=== PATIENT | male | born 1975 | race Caucasian/White ===

== ENCOUNTER 2021-02-25 16:31 | Outpatient (CLI) | payer OTHER, SELFPAY ==
--- NOTE | ~2021-02-25 | US_ITS ---
EXAMINATION: US scrotum doppler EXAM DATE: 02/25/2021 17:01 INDICATION: Left testicular pain. TECHNIQUE: Multiple grayscale and Doppler images of the testicles and scrotum were obtained bilateral ly. There is no prior study for comparison. FINDINGS: Right testicle measures 3.4 x 1.8 x 3.4 cm and is morphologically normal. Low resistance Doppler bella w confirmed. The epididymis is unremarkable. Small right-sided varicocele. Left testicle measures 3.0 x 1.7 x 2.7 cm and is morphologically normal. Low resistance Doppler flow confirmed. There is no hydrocele or varicocele. There is a focal extratesticular scrotal hypoecho ic region without vascularity demonstrated measuring 7 x 5 x 8 mm, nonspecific. This is an incidental finding could be an epididymal body cyst, most likely not a clinically significant finding, but ther e are uncommon extratesticular tumors. IMPRESSION: 1. No acute testicle scrotal findings. 2. Nonspecific hypoechoic left peritesticular region, could be proteinaceous cyst but can't exclude solid mass. Recommend 3-six-month follow-up scrotal ultrasound. 3. Small right-sided varicocele. Reviewed, dictated and finalized at location A. IMPRESSION: 1. No acute testicle scrotal findings. 2. Nonspecific hypoechoic left peritesticular region, could be proteinaceous c yst but can't exclude solid mass. Recommend 3-six-month follow-up scrotal ultra sound. 3. Small right-sided varicocele.
== END 2021-02-25 16:32 | disposition home or self-care (01) ==
PROVIDERS: PCP Family Medicine; Visit Provider Physician Assistant
DX: N50.812 Left testicular pain (principal); I86.1 Scrotal varices
CPT/HCPCS: 76870; 93976

== ENCOUNTER 2021-08-23 07:38 | Outpatient (CLI) | payer OTHER, SELFPAY ==
--- NOTE | ~2021-08-23 | US_ITS ---
EXAMINATION: US scrotum doppler DATE: 08/23/2021 08:40 INDICATION: Left testicular pain TECHNIQUE: Testicular sonogram utilizing grayscale and Doppler COMPARISON: 02/25/2021 FINDINGS: The right testis measures 3.6 x 3.6 x 1.6 cm. The left testis measures 3.4 x 2.5 x 1.8 cm. Symmetric normal grayscale appearance to both testes. There is normal vascular flow to both testes. The right e pididymis is normal with normal vascular flow. No significant change in a 5 mm anechoic likely likely either left epididymal or tunica cyst along the superficial margin of the left testis. The left epid idymis is otherwise normal with normal vascular flow. No significant interval change in a 9 x 8 x 6 m m now more anechoic likely cystic lesion in the soft tissues posterior to the left testis with no def initive soft tissue or vascular component on color Doppler. There is no varicocele or hydrocele. IMPRESSION: 1. No acute intrascrotal abnormality. 2. No significant change in a 9 mm now more anechoic likely cystic lesion posterior to the left testi s which given the appearance and absence of interval change or solid or vascular component favors a b enign etiology. Reviewed, dictated and finalized at location A. IMPRESSION: 1. No acute intrascrotal abnormality. 2. No significant change in a 9 mm now more anechoic likely cystic lesion poste rior to the left testis which given the appearance and absence of interval weinstein ge or solid or vascular component favors a benign etiology.
== END 2021-08-23 07:39 | disposition home or self-care (01) ==
PROVIDERS: PCP Family Medicine; Visit Provider Physician Assistant
DX: N50.812 Left testicular pain (principal)
CPT/HCPCS: 76870; 93976

== ENCOUNTER 2024-03-17 01:15 | Day surgery (SDC) | payer OTHER, SELFPAY ==
[2024-03-08 12:55] VITALS: BMI 40.1
[2024-03-17 07:47] VITALS: BP 134/87; PULSE 100; RESP 18; TEMP 35.9; O2SAT 99; BMI 40.3
[2024-03-17] MEDS: LACTATED RINGERS 1,000 ML 150 ML IV CONT (07:54)
--- NOTE | 2024-03-17 08:39 | WPDANESEPPF ---
Anes - Initial Pre Proc Eval Procedure: Operation Date: 03/17/24 09:00 Proposed Procedures p Screening Colonoscopy - Saroj Garza MD Date/Time: 03/17/24 08:39 Surgeon: Saroj Garza MD Pre Op Diagnosis: neoplasm screening Patient Data Age: 48 Gender: M Height: 1.78 m Weight: 127.4 kg Last Vital Signs Temp 96.6 F L 03/17/24 07:47 Pulse 100 03/17/24 07:47 Resp 18 03/17/24 07:47 BP 134/87 03/17/24 07:47 Pulse Ox 99 03/17/24 07:47 O2 Del Method Room Air 03/17/24 07:47 Allergies Allergy/AdvReac Type Severity Reaction Status Date / Time No Known Allergies Allergy Verified 03/17/24 07:46 Home Medications Medication Instructions Recorded Confirmed Type lisinopril 10 mg tablet See Rx Instructions .Route 12/08/23 03/17/24 Rx .COMPLEX #90 tabs fluticasone propionate 50 See Rx Instructions .Route 03/11/24 03/17/24 Rx mcg/actuation nasal .COMPLEX PRN Nasal Congestion #16 spray,suspension grams Patient hx anesthesia problems: none Family hx anesthesia problems: none Results Review: All pre-operative results and documents have been reviewed as part of the pre-operative evaluation. PENDING SALE TO [facility] Past Medical History Medical History Hypertension Family History Family History Grandparent Family history of cardiovascular disease Acute myocardial infarction Father Hypertension Family history of elevated blood lipids Social History Social History (Updated 12/23/23 @ 13:07 by Luiza Lake CMA) Smoking status: Never smoker Alcohol intake: current Drinks per week: 5 Substance use: never Do You Feel Safe in your Home?: Yes Lack of Transportation: No Lack of Food: Never True Current Housing: I Have Housing Concerned About Future Housing: No Difficulty Paying Gas/Electric Bills: No Difficulty Paying for Meds: No Currently Unemployed: No Education: Master's Degree or Higher Living arrangements: with family Anes - Eval Final PreProcedure Day of Procedure 04/18/24 08:39 Patient weight: morbidly obese Heart: regular rate and rhythm Lungs: clear to auscultation Airway: Mallampati scale class II Neurological: alert and oriented Last oral intake: >/= 8 hours ASA classification: III Emergent: no Anesthetic plan: proceed Anesthesia type and monitoring: general GIVS and standard monitoring Results Review: All pre-operative results and documents have been reviewed as part of the pre-operative evaluation. Informed Consent: The patient's anesthetic plan and its attendant risks and benefits were discussed with the patient/family/POA. Questions were solicited and answers provided to the satisfaction of the patient/family/POA.
--- NOTE | 2024-03-17 08:43 | PM.HPGS ---
History of Present Illness History of Present Illness Consent: Risks, benefits, and alternatives have been discussed and questions answered. Patient agrees to proceed with procedure. Chief complaint: neoplasm screening Narrative: Jamari Thornton is a 48 year old male here for first screening colonoscopy Review of Systems Review of Systems: All systems reviewed & are unremarkable except as noted in HPI and below PMFSH Past Medical History Medical History Hypertension Family History Family History Grandparent Family history of cardiovascular disease Acute myocardial infarction Father Hypertension Family history of elevated blood lipids Social History Social History (Updated 12/23/23 @ 13:07 by Luiza Lake CMA) Smoking status: Never smoker Alcohol intake: current Drinks per week: 5 Substance use: never Do You Feel Safe in your Home?: Yes Lack of Transportation: No Lack of Food: Never True Current Housing: I Have Housing Concerned About Future Housing: No Difficulty Paying Gas/Electric Bills: No Difficulty Paying for Meds: No Currently Unemployed: No Education: Master's Degree or Higher Living arrangements: with family Meds Home Medications and Allergies Home Medications Medication Instructions Recorded Confirmed Type lisinopril 10 mg tablet See Rx Instructions .Route 12/08/23 03/17/24 Rx .COMPLEX #90 tabs fluticasone propionate 50 See Rx Instructions .Route 03/11/24 03/17/24 Rx mcg/actuation nasal .COMPLEX PRN Nasal Congestion #16 spray,suspension grams Allergies Allergy/AdvReac Type Severity Reaction Status Date / Time No Known Allergies Allergy Verified 03/17/24 07:46 Vital Signs Vital Signs - 24 hr 03/17/24 07:47 Temperature 96.6 F L Pulse Rate 100 Respiratory Rate 18 Blood Pressure 134/87 Pulse Oximetry 99 Oxygen Delivery Room Air Exam Const: General: comfortable and no acute distress HENMT: Face/Nose/Sinus: Normal nares present Eyes: General: appearance normal, both eyes and all related structures Neck: Neck: no JVD Resp: Auscultation: clear to auscultation bilaterally Cardio: Rate: regular rate Rhythm: regular rhythm GI: Inspection: non-distended GI Palp: Yes Soft to palpation Skin: General skin exam: normal color Neuro: General: gait normal Speech: normal speech Extrem: General: normal to inspection Psych: Mental Status: mental status grossly normal Assessment and Plan Assessment and plan (1) Screening for colon cancer: Code(s): Z12.11 - Encounter for screening for malignant neoplasm of colon Status: Acute Assessment and Plan: colonoscopy
[2024-03-17 08:57] VITALS: BP 103/58; PULSE 78; RESP 16; O2SAT 98
[2024-03-17 09:07] VITALS: BP 108/56; PULSE 68; RESP 18; O2SAT 99
[2024-03-17 09:17] VITALS: BP 112/60; PULSE 72; RESP 18; O2SAT 98
== END 2024-03-17 09:22 | disposition home or self-care (01) ==
PROVIDERS: PCP Clinical Nurse Specialist; Visit Provider Internal Medicine Gastroenterology
PROC: 0DJD8ZZ Inspection of Lower Intestinal Tract, Via Natural or Artificial Opening Endoscopic (ICD-10-PCS; CPT 45378; principal; 2024-03-17 09:00)
DX: Z12.11 Encounter for screening for malignant neoplasm of colon (principal); I10 Essential (primary) hypertension; E66.01 Morbid (severe) obesity due to excess calories; Z68.41 Body mass index [BMI] 40.0-44.9, adult; Z82.49 Family history of ischemic heart disease and other diseases of the circulatory system
CPT/HCPCS: 45378; J2704; J7120

== ENCOUNTER 2024-05-24 14:18 | Emergency (ER) | payer OTHER, SELFPAY ==
--- NOTE | ~2024-05-24 | CT_ITS ---
EXAMINATION: CT abdomen pelvis wo con DATE: 05/24/2024 15:30 INDICATION: Right flank pain TECHNIQUE: Computed tomography (CT) of the abdomen and pelvis was performed without intravenous contr ast. Automated exposure control and iterative reconstruction technique were employed. The dose-length product was 1064.40 mGy-cm. COMPARISON: 07/27/2017 FINDINGS: Mild discoid atelectasis at the lingula. Heart size is normal. No pericardial or pleural effusion. Di ffuse hepatic steatosis. Gallbladder, spleen, pancreas, bilateral adrenal glands and left kidney are normal. 1 cm cyst at the upper pole the right kidney. 3 mm nonobstructing stone at a lower pole calyx of the right kidney. There is mild right hydroureteronephrosis extending to a 1 mm stone at the righ t ureterovesicular junction. No left-sided urolithiasis or hydronephrosis. The partially decompressed bladder is unremarkable. Bowels are normal with no evident wall thickening or obstruction. The appen jarvis is not visualized. No pericecal inflammatory change to suggest acute appendicitis. No free intra peritoneal gas or fluid. Small fat-containing umbilical hernia. No pathologically enlarged abdominal or pelvic lymphadenopathy. Mild lumbar and moderate lower thoracic spondylosis. IMPRESSION: 1. 1 mm obstructing stone at the right ureterovesicular junction with mild right hydronephrosis. Reviewed, dictated and finalized at location B. IMPRESSION: 1. 1 mm obstructing stone at the right ureterovesicular junction with mild righ t hydronephrosis.
[2024-05-24 14:24] VITALS: BP 141/116; PULSE 80; RESP 20; TEMP 36.8; O2SAT 98
[2024-05-24 14:45] LABS: Appearance Urine Clear (Clear); Bilirubin Urine Negative (Negative); Blood Urine Negative (Negative); Color Urine Yellow (Yellow); Glucose Urine UA Negative (Negative); Ketones Urine Negative (Negative); Leukocyte Esterase Ur Negative LEU/UL (Negative); Nitrate Urine Negative (Negative); Protein Urine Negative (Negative); Specific Grav Ur 1.019 (1.001-1.035); Urobilinogen Urine 0.2 mg/dL (<2.0)
[2024-05-24 14:46] LABS: Basophils Absolute Auto 0.1 K/mm3 (0.0-0.1); Basophils Percent Auto 0.8 % (0.2-1.2); Eosinophils Absolute Auto 0.1 K/mm3 (0-0.3); Eosinophils Percent Auto 1.1 % (0-4.4); Hematocrit 40.9 % (42.0-52.0); Immature Granulocyte Absolute 0.02 K/mm3 (0.00-0.031); Immature Granulocyte Percent A 0.2 % (0-0.5); Lymphocytes Absolute Auto 2.35 K/mm3 (0.9-3.2); Lymphocytes Percent Auto 27.8 % (18.3-44.2); Mean Corpuscular HGB Conc 34.2 g/dl (32-36); Mean Corpuscular Hemoglobin 27.8 pg (26-34); Mean Corpuscular Volume 81.2 fl (80-100); Mean Platelet Volume 9.6 fl (7.4-10.4); Monocytes Absolute Auto 0.8 K/mm3 (0.1-0.6); Monocytes Percent Auto 9.3 % (2.6-8.5); Neutrophils Absolute Auto 5.1 K/mm3 (1.3-6.7); Neutrophils Percent Auto 60.8 % (45.5-73.1); Platelet Count Result 279 k/mm3 (150-375); Red Blood Count 5.04 M/mm3 (4.6-6.20); Red Cell Distribution Width 13.4 % (11.5-14.5); White Blood Count 8.5 K/mm3 (4.5-10.0)
[2024-05-24 14:55] LABS: Alanine Aminotransferase 37 U/L (6-50); Albumin Level 4.9 g/dL (3.5-5.1); Alkaline Phosphatase 85 U/L (38-126); Anion Gap 13 mmol/L (4-12); Aspartate Amino Transferase 26 U/L (17-59); Bilirubin,Total 0.6 mg/dL (0.2-1.3); Blood Urea Nitrogen 17 mg/dL (9-20); Calcium 9.3 mg/dL (8.4-10.2); Carbon Dioxide 24 mmol/L (22-30); Chloride 103 mmol/L (98-107); Estimated CRCL calculation 119 ml/min; Estimated Glomerular Filt Rate > 60; Glucose 98 mg/dL (65-110); Sodium 140 mmol/L (137-145)
[2024-05-24 15:06] LABS: Add Urine Microscopic? NO
--- NOTE | 2024-05-24 15:17 | ED.BACK ---
HPI - Back Pain/Injury General Chief Complaint: Back Pain/Injury Stated Complaint: R flank pain Time Seen by Provider: 05/24/24 14:47 Source: patient Mode of arrival: ambulatory Limitations: no limitations History of Present Illness HPI Narrative: This is a 49 year old male that presents to the ER for right sided flank pain. Ongoing over the last couple of hours. Associated with nausea and vomiting. Reports history of kidney stones and his pain feels similar. Reports some dysuria. Denies fevers or hematuria. Related Data Allergies Allergy/AdvReac Type Severity Reaction Status Date / Time No Known Allergies Allergy Verified 05/24/24 14:29 Review of Systems Review of Systems: CONSTITUTIONAL: Denies fever GASTROINTESTINAL: Reports abdominal pain, nausea, vomiting GENITOURINARY: Reports dysuria. Denies hematuria. All systems reviewed & are unremarkable except as noted in HPI and below PMFSH Past Medical History Medical History Hypertension Family History Family History Grandparent Family history of cardiovascular disease Acute myocardial infarction Father Hypertension Family history of elevated blood lipids Social History Social History (Updated 12/23/23 @ 13:07 by Luiza Lake CMA) Smoking status: Never smoker Alcohol intake: current Drinks per week: 5 Substance use: never Do You Feel Safe in your Home?: Yes Lack of Transportation: No Lack of Food: Never True Current Housing: I Have Housing Concerned About Future Housing: No Difficulty Paying Gas/Electric Bills: No Difficulty Paying for Meds: No Currently Unemployed: No Education: Master's Degree or Higher Living arrangements: with family Exam Narrative: GENERAL: Well-appearing, well-nourished, and in no acute distress. HEAD: Normocephalic, atraumatic. EYES: EOMI. CHEST: Clear to auscultation. No respiratory distress. No wheezes rales or rhonchi HEART: Regular rate and rhythm. No murmur heard. Normal peripheral pulses. ABDOMEN: Soft, nontender, nondistended, normal active bowel sounds. No CVA tenderness EXTREMITIES: Normal range of motion. No edema. SKIN: Warm, dry, no rash. NEURO: No focal deficits. Alert and oriented x3. PSYCH: Normal mood and affect Course Course Emergency Course: patient updated on his workup and agrees with plan of care Vital Signs Vital signs: Vital Signs Temperature 98.3 F 05/24/24 14:24 Pulse Rate 80 05/24/24 14:24 Respiratory Rate 20 05/24/24 14:24 Blood Pressure 141/116 H 05/24/24 14:24 Pulse Oximetry 98 05/24/24 14:24 Oxygen Delivery Room Air 05/24/24 14:24 Temperature 98.3 F 05/24/24 14:24 Pulse Rate 80 05/24/24 14:24 Respiratory Rate 20 05/24/24 14:24 Blood Pressure 141/116 H 05/24/24 14:24 Pulse Oximetry 98 05/24/24 14:24 Oxygen Delivery Room Air 05/24/24 14:24 MDM - Back Pain/Injury MDM Narrative Medical decision making narrative: patient presents to the emergency department for right flank pain ongoing over the last several hours. He is afebrile and nontoxic appearing. His vitals are stable. Cbc without leukocytosis. Metabolic panel with normal kidney function. Urine without evidence of infection. CT abdomen and pelvis shows a 1 mm obstructing stone at the right UVJ. Patient updated on his workup and agrees with plan of care. Will be given follow-up with urology. He was given warnings to return to the ER Differential Diagnosis Differential diagnosis: Likely renal colic, pyelonephritis and other (UTI, kidney stone) Lab Data Attestation: I reviewed the patient's lab results. 05/24/24 14:38 05/24/24 14:38 Labs: Lab Results 05/24/24 Range/Units 14:38 WBC 8.5 (4.5-10.0) K/mm3 RBC 5.04 (4.6-6.20) M/mm3 Hgb 14.0 (14.0-18.0) g/dL Hct 40.9 L (42.0-52.0) %
[2024-05-24] MEDS: SODIUM CHLORIDE 0.9% IV 1,000 ML 999 ML IV CONT (15:20)
[2024-05-24] MEDS: MORPHINE SULFATE (*CRX) 4 MG/ML INJ IV PUSH (15:21)
[2024-05-24] MEDS: ONDANSETRON INJ 4 MG/2 ML VIAL IV PUSH (15:21)
[2024-05-24] MEDS: KETOROLAC 15 MG/ML VIAL (*BKC) IV PUSH (15:59)
[2024-05-24 18:00] VITALS: BP 135/87; PULSE 88; RESP 15; TEMP 36.6; O2SAT 99
== END 2024-05-24 18:04 | disposition home or self-care (01) ==
PROVIDERS: Emergency Medicine; Emergency Provider Physician Assistant; PCP Clinical Nurse Specialist
DX: N20.0 Calculus of kidney (principal); I10 Essential (primary) hypertension
CPT/HCPCS: 36415; 74176; 80053; 81003; 85025; 96361; 96374; 96375; 99284; J1885; J2270; J2405; J7030

== ENCOUNTER 2025-05-25 08:07 | Emergency (ER) | payer OTHER, SELFPAY ==
--- NOTE | ~2025-05-25 | CT_ITS ---
EXAMINATION: CT abdomen pelvis wo con DATE: 05/25/2025 08:48 INDICATION: Flank pain TECHNIQUE: Computed tomography (CT) of the abdomen and pelvis was performed without intravenous contr ast. Automated exposure control and iterative reconstruction technique were employed. The dose-length product was 872.71 mGy-cm. COMPARISON: 05/24/2024 FINDINGS: Calcified right lower lobe nodule consistent with old granulomatous disease. Heart size is normal. No pericardial or pleural effusion. Diffuse hepatic steatosis. Gallbladder, spleen, pancreas and bilate ral adrenal glands are normal. 405 mm stone at a lower pole calyx of the right kidney. 1 mm stone at the left ureterovesicular junction with mild left hydronephrosis. Bowels are unremarkable. Decompress ed bladder is normal. No free intraperitoneal gas or fluid. No pathologically enlarged abdominal or p elvic lymphadenopathy. Mild to moderate lumbar and lower thoracic spondylosis. IMPRESSION: 1. Bilateral nephrolithiasis with obstructing 1 mm stone at left ureterovesicular junction with mild left hydronephrosis. 2. Diffuse hepatic steatosis. Reviewed, dictated and finalized at location A. IMPRESSION: 1. Bilateral nephrolithiasis with obstructing 1 mm stone at left ureterovesicul ar junction with mild left hydronephrosis. 2. Diffuse hepatic steatosis.
[2025-05-25 08:14] VITALS: BP 140/99; PULSE 80; RESP 18; TEMP 37.2; O2SAT 99
--- NOTE | 2025-05-25 08:17 | ED_ITS ---
HPI - Male Genitourinary General Chief complaint: Urogenital-Male Stated complaint: I have kidney stones hx of kidney stones Time Seen by Provider: 05/25/25 08:16 Source: patient Mode of arrival: ambulatory Limitations: no limitations History of Present Illness HPI Narrative: 50 years old white male, left flank pain radiating to left testicle and left lower quadrant started 2 hours prior to arrival, history of kidney stone. Patient reports some nausea and vomiting once and diaphoresis. Last kidney stone was 1 year ago. He denies any fever or chills. Related Data Allergies Allergy/AdvReac Type Severity Reaction Status Date / Time No Known Allergies Allergy Verified 12/28/24 10:36 Review of Systems 2 Review of Systems: All systems reviewed & are unremarkable except as noted in HPI and below PMFSH Past Medical History Medical History Hypertension Family History Family History Grandparent Family history of cardiovascular disease Acute myocardial infarction Father Hypertension Family history of elevated blood lipids Social History Social History Smoking status: Never smoker Alcohol intake: current Drinks per week: 5 Substance use: never Do You Feel Safe in your Home?: Yes Lack of Transportation: No Lack of Food: Never True Current Housing: I Have Housing Concerned About Future Housing: No Difficulty Paying Gas/Electric Bills: No Difficulty Paying for Meds: No Currently Unemployed: No Education: Master's Degree or Higher Living arrangements: with family Exam 2 Narrative: General appearance: Well-developed, well-nourished Skin: Normal color Head: Normocephalic, nontraumatic Eyes: Clear conjunctiva ENT: Oropharynx normal, ears normal, nose normal Neck: Supple, nontender Chest and respiratory: Airway patent, no respiratory distress, no accessory muscle use Heart: Regular rate/rhythm Abdomen: Soft, left flank tenderness, left lower quadrant tenderness, no organomegaly, quiet bowel sounds Vascular: Normal peripheral pulses, normal capillary refill. Musculoskeletal: Normal range of motion, nontender back Neurologic: Alert and oriented ?3, [employer] INFORMATION DIRECT[employer] is normal as tested, no gross motor deficit Course Vital Signs Vital signs: Vital Signs Temperature 37.2 C 05/25/25 08:14 Pulse Rate 80 05/25/25 08:14 Respiratory Rate 18 05/25/25 08:14 Blood Pressure 140/99 H 05/25/25 08:14 Pulse Oximetry 99 05/25/25 08:14 Oxygen Delivery Room Air 05/25/25 08:14 Temperature 37.2 C 05/25/25 08:14 Pulse Rate 80 05/25/25 08:14 Respiratory Rate 18 05/25/25 08:14 Blood Pressure 140/99 H 05/25/25 08:14 Pulse Oximetry 99 05/25/25 08:14 Oxygen Delivery Room Air 05/25/25 08:14 MDM - Male Genitourinary MDM Narrative Medical decision making narrative: Patient presents with left flank pain, history of kidney stone Vital signs stable Physical examination left flank tenderness Differential diagnosis kidney stone, pyelonephritis, urinary tract infection Workup today include CBC, CMP, showed Urinalysis showed CT abdomen and pelvis without contrast showed Differential Diagnosis Differential diagnosis: Likely other (As above) Medical Records Attestation: I reviewed the patient's medical records. Lab Data Attestation: I reviewed the patient's lab results. 05/25/25 08:32 05/25/25 08:32 Labs: Lab Results 05/25/25 05/25/25 Range/Units 08:32 09:16 WBC 9.3 (4.5-10.0) K/mm3 RBC 5.04 (4.6-6.20) M/mm3 Hgb 13.6 L (14.0-18.0) g/dL Hct 41.5 L (42.0-52.0) % MCV 82.3 (80-100) fl MCH 27.0 (26-34) pg MCHC 32.8 (32-36) g/dl RDW 13.3 (11.5-14.5) % Plt Count 282 (150-375) k/mm3 MPV 9.4 (7.4-10.4) fl Immature Gran % (Auto) 0.4 (0-0.5) % Neut % (Auto) 58.4 (45.5-73.1) % Lymph % (Auto) 27.8 (18.3-44.2) % [place] % (Auto) 10.5 H (2.6-8.5) % Eos % (Auto) 2.1 (0-4.4) % Baso % (Auto) 0.8 (0.2-1.2) % Lymph # (Auto) 2.59 (0.9-3.2) K/mm3 [place] # (Auto) 1.0 H (0.1-0.6) K/mm3 Eos # (Auto) 0.2 (0-0.3) K/mm3 Baso # (Auto) 0.1 (0.0-0.1) K/mm3 Abs Immat Gran (auto) 0.04 H (0.00-0.031) K/mm3 Absolute Neuts (auto) 5.5 (1.3-6.7) K/mm3 Absolute Nucleated RBC 0.000 (0.0-0.012) K/mm3 Nucleated RBC % 0.0 (0.0-0.2) % Sodium 140 (137-145) mmol/L Potassium 4.2 (3.4-5.0) mmol/L Chloride 105 (98-107) mmol/L Carbon Dioxide 25 (22-30) mmol/L Anion Gap 10 (4-12) mmol/L BUN 19 (9-20) mg/dL Creatinine 1.01 (0.7-1.3) mg/dL Estim Creat Clear Calc 106 ml/min Estimated GFR > 60 (59 - ) Glucose 111 H (65-110) mg/dL Calcium 9.5 (8.4-10.2) mg/dL Total Bilirubin 0.4 (0.2-1.3) mg/dL AST 30 (17-59) U/L ALT 41 (6-50) U/L Alkaline Phosphatase 90 (38-126) U/L Total Protein 8.1 (6.3-8.2) g/dL Albumin 4.5 (3.5-5.1) g/dL Urine Color Yellow (Yellow) Urine Appearance Cloudy H (Clear) Urine pH 5.5 (5.0-9.0) Ur Specific [place] 1.031 (1.001-1.035) Urine Protein 1+ H (Negative) mg/dL Urine Glucose (UA) Negative (Negative) mg/dL Urine Ketones Trace H (Negative) mg/dL Ur Blood (Man) 3+ H (Negative) Urine Nitrate Negative (Negative) Urine Bilirubin Negative (Negative) Urine Urobilinogen 1.0 (<2.0) mg/dL Leukocyte Esterase Rfl Negative (Negative) WILLIAM/UL Urine RBC >100 H (0-2) /hpf Urine WBC 0-5 (0-3) /hpf Ur Squamous Epith Cells None seen (Few) /hpf Urine Bacteria None seen /hpf Urine Casts 0-2 Imaging Data Radiologist's impression: Impressions Abdomen/Pelvis CT 05/25/25 08:52 IMPRESSION: 1. Bilateral nephrolithiasis with obstructing 1 mm stone at left ureterovesicular junction with mild left hydronephrosis. 2. Diffuse hepatic steatosis. Discharge Plan Discharge Clinical Impression: Kidney stone on left side Clinical Impression: (Ruled Out): Screening for colon cancer Patient Disposition: Home Condition: Stable Instructions: Kidney Stones (ED), How to Strain Your Urine (ED) Additional Instructions: RETURN IF SYMPTOMS ARE WORSENING , CALL [facility] FOR APPOINTMENT, TAKE TYLENOL NEEDED FOR ACHES AND PAIN, CONTINUE HOME MEDICATIONS. Patient Language: Latvian Prescriptions: New ondansetron 4 mg tablet,disintegrating 4 mg PO Q4H 0 Days Qty: 10 0RF Rx Instructions: give 1st dose 30min before emetogenic chemo hydrocodone-acetaminophen 5-325 mg tablet 1 tablet PO Q4H Qty: 20 0RF tamsulosin [Flomax] 0.4 mg capsule 0.4 mg PO DAILY Qty: 10 0RF No Action lisinopril 10 mg tablet See Rx Instructions .ROUTE .COMPLEX Qty: 90 3RF Dose Instruction: Take 1 tablet by mouth once daily Rx Instructions: Take 1 tablet by mouth once daily fluticasone propionate 50 mcg/actuation spray,suspension See Rx Instructions .ROUTE .COMPLEX Qty: 16 0RF Dose Instruction: USE 1 TO 2 SPRAY(S) IN EACH NOSTRIL ONCE DAILY NEEDED FOR NASAL CONGESTION Rx Instructions: USE 1 TO 2 SPRAY(S) IN EACH NOSTRIL ONCE DAILY NEEDED FOR NASAL CONGESTION Follow-up/Referrals: Lan Felix MD [Physician] - 05/29/25 Shelby Rosas FNP-C [Primary Care Provider] -
[2025-05-25] MEDS: HYDROmorphone HCL INJ (*CRX) 2 MG/ML VIAL 0.5 MG IV PUSH ×2 (08:27→09:13)
[2025-05-25] MEDS: ONDANSETRON INJ 4 MG/2 ML VIAL IV PUSH ×2 (08:27→10:24)
[2025-05-25] MEDS: TAMSULOSIN HCL 0.4 MG CAPSULE PO (08:31)
[2025-05-25 08:40] LABS: Basophils Absolute Auto 0.1 K/mm3 (0.0-0.1); Basophils Percent Auto 0.8 % (0.2-1.2); Eosinophils Absolute Auto 0.2 K/mm3 (0-0.3); Eosinophils Percent Auto 2.1 % (0-4.4); Hematocrit 41.5 % (42.0-52.0); Hemoglobin 13.6 g/dL (14.0-18.0); Immature Granulocyte Absolute 0.04 K/mm3 (0.00-0.031); Immature Granulocyte Percent A 0.4 % (0-0.5); Lymphocytes Absolute Auto 2.59 K/mm3 (0.9-3.2); Lymphocytes Percent Auto 27.8 % (18.3-44.2); Mean Corpuscular HGB Conc 32.8 g/dl (32-36); Mean Corpuscular Volume 82.3 fl (80-100); Mean Platelet Volume 9.4 fl (7.4-10.4); Monocytes Percent Auto 10.5 % (2.6-8.5); Neutrophils Absolute Auto 5.5 K/mm3 (1.3-6.7); Neutrophils Percent Auto 58.4 % (45.5-73.1); Platelet Count Result 282 k/mm3 (150-375); Red Blood Count 5.04 M/mm3 (4.6-6.20); Red Cell Distribution Width 13.3 % (11.5-14.5); White Blood Count 9.3 K/mm3 (4.5-10.0)
[2025-05-25 08:54] LABS: Alanine Aminotransferase 41 U/L (6-50); Albumin Level 4.5 g/dL (3.5-5.1); Alkaline Phosphatase 90 U/L (38-126); Anion Gap 10 mmol/L (4-12); Aspartate Amino Transferase 30 U/L (17-59); Bilirubin,Total 0.4 mg/dL (0.2-1.3); Blood Urea Nitrogen 19 mg/dL (9-20); Calcium 9.5 mg/dL (8.4-10.2); Carbon Dioxide 25 mmol/L (22-30); Chloride 105 mmol/L (98-107); Estimated CRCL calculation 106 ml/min; Estimated Glomerular Filt Rate > 60; Glucose 111 mg/dL (65-110); Potassium 4.2 mmol/L (3.4-5.0); Sodium 140 mmol/L (137-145); Total Protein 8.1 g/dL (6.3-8.2)
[2025-05-25 09:31] LABS: Add Urine Microscopic? YES; Appearance Urine Cloudy (Clear); Bacteria Urine None Seen /hpf; Bilirubin Urine Negative (Negative); Blood Urine 3+ (Negative); Color Urine Yellow (Yellow); Glucose Urine UA Negative (Negative); Ketones Urine Trace mg/dL (Negative); Leukocyte Esterase Ur Negative LEU/UL (Negative); Nitrate Urine Negative (Negative); Non Pathogenic Casts 0-2; Protein Urine 1+ mg/dL (Negative); RBC Urine >100 /hpf (0-2); Specific Grav Ur 1.031 (1.001-1.035); Squamous Epithelial Cell Urine None Seen /hpf (Few); WBC Urine 0-5 /hpf (0-3); pH Urine 5.5 (5.0-9.0)
[2025-05-25] MEDS: KETOROLAC 30 MG/ML VIAL (*BKC) IV PUSH (10:24)
[2025-05-25 10:43] VITALS: BP 149/98; PULSE 84; RESP 17; O2SAT 100
== END 2025-05-25 10:45 | disposition home or self-care (01) ==
PROVIDERS: Emergency Provider Emergency Medicine; PCP Clinical Nurse Specialist
DX: N13.2 Hydronephrosis with renal and ureteral calculous obstruction (principal); I10 Essential (primary) hypertension; Z87.442 Personal history of urinary calculi; K76.0 Fatty (change of) liver, not elsewhere classified; Z79.899 Other long term (current) drug therapy
CPT/HCPCS: 36415; 74176; 80053; 81001; 85025; 96374; 96375; 96376; 99284; A9270; J1171; J1885; J2405